=== PATIENT | female | born 1985 | race Caucasian/White ===

== ENCOUNTER 2018-01-24 18:55 | Emergency (ER) | payer SELFPAY ==
[2018-01-24] MEDS ORDERED: Metoclopramide HCl 10 MG/2 ML VIAL ONE (20:05)
[2018-01-24] MEDS ORDERED: diphenhydrAMINE 50 MG/ML VIAL ONE (20:05)
[2018-01-24] MEDS ORDERED: traMADol HCl 50 MG TAB ONE (21:18)
--- NOTE | 2018-01-24 21:42 | CT ---
CT OF BRAIN PERFORMED WITHOUT CONTRAST ENHANCEMENT: 01/24/18 HISTORY: Headache with trauma. The ventricular and cisternal system is within normal limits. There is no signs of intracerebral hemo rrhage or extra-axial fluid collections. Mastoid air cells are clear. There is mucosal change in the ethmoid and left maxillary sinuses. IMPRESSION: No acute intracranial abnormalities. POS: [facility]
== END 2018-01-25 00:20 | disposition home or self-care (01) ==
LOC: ERS 18:55
DX: R51 Headache (principal); F07.81 Postconcussional syndrome; F17.210 Nicotine dependence, cigarettes, uncomplicated
CPT/HCPCS: 70450; 96365; 96375; J1200; J2765